=== PATIENT | female | born 1940 | race Caucasian/White ===

== ENCOUNTER 2022-01-03 21:23 | Inpatient (IN) | payer MEDICARE, OTHER ==
[~2022-01-03] VITALS: Ht 165.1 cm; Wt 82.6 kg
[~2022-01-03 21:23] MED LIST: ARIMIDEX1 MG PO; ASPIRIN EC325 MG PO; CALCITRATE200 MG PO; ELIQUIS5 MG PO; EVISTA60 MG PO; IMDUR ER TAB 3030 MG PO; LASIX 40 MG TAB40 MG PO; LOSARTAN POTASS50 MG PO; METOPROLOL TART25 MG PO; PLAVIX 75 MG TA75 MG PO; POTASSIUM CHLO20 MEQ PO; PROTONIX40 MG PO; SYMBICORT 16010.2 GM INH; SYNTHROID137 MCG PO; VENTOLIN HFA8 GM INH; VICTOZA 3-0.6 MG/0.1 SC
[2022-01-04 04:11] LABS: HEMOGLOBIN 12.6 gm/dl (12.3-15.3); RED BLOOD COUNT 4.27 M/UL (4.00-5.10); WHITE BLOOD COUNT 6.5 K/UL (4.5-11.0)
[2022-01-04 04:46] LABS: BUN/CREATININE RATIO 29 (0-10)
[2022-01-04] MEDS ORDERED: NITROGLYCERIN0.4 MG SL (09:53)
[2022-01-04] MEDS ORDERED: COLCHICINE0.6 M1 PO (09:54)
[2022-01-04] MEDS ORDERED: METFORMIN HCL1000 MG PO (09:55)
[2022-01-04] MEDS ORDERED: VITAMIN D21250 MCG PO (09:57)
[2022-01-05 06:57] LABS: HEMOGLOBIN 11.6 gm/dl (12.3-15.3); RED BLOOD COUNT 3.93 M/UL (4.00-5.10); WHITE BLOOD COUNT 5.8 K/UL (4.5-11.0)
[2022-01-06 03:54] LABS: RED BLOOD COUNT 3.69 M/UL (4.00-5.10)
[2022-01-06 03:56] LABS: WHITE BLOOD COUNT 8.9 K/UL (4.5-11.0)
[2022-01-06 07:39] LABS: BUN/CREATININE RATIO 28 (0-10)
[2022-01-07 03:38] LABS: HEMOGLOBIN 10.6 gm/dl (12.3-15.3); RED BLOOD COUNT 3.54 M/UL (4.00-5.10); WHITE BLOOD COUNT 9.6 K/UL (4.5-11.0)
--- NOTE | 2022-01-07 15:42 | NUR ---
1430 - PATIENT RETURNED TO ROOM FROM PACU. PATIENT [id number] WITH MILD DROWSINESS. VITALS STABLE. SCUDS AND COMPRESSION STOCKINGS APPLIED. INCENTIVE SPIROMETRY GIVEN. PATIENT ACHIEVED 750 AT THIS TIME. TELE APPLIED. DRESSING TO RIGHT THIGH/HIP C/D/I.
[2022-01-08 06:45] LABS: HEMOGLOBIN 9.1 gm/dl (12.3-15.3)
[2022-01-08 06:52] LABS: RED BLOOD COUNT 3.02 M/UL (4.00-5.10); WHITE BLOOD COUNT 13.3 K/UL (4.5-11.0)
[2022-01-08 07:06] LABS: BUN/CREATININE RATIO 26 (0-10)
[2022-01-09 04:51] LABS: HEMOGLOBIN 9.1 gm/dl (12.3-15.3); RED BLOOD COUNT 3.03 M/UL (4.00-5.10); WHITE BLOOD COUNT 14.4 K/UL (4.5-11.0)
[2022-01-10 06:19] LABS: HEMOGLOBIN 8.2 gm/dl (12.3-15.3); WHITE BLOOD COUNT 11.1 K/UL (4.5-11.0)
[2022-01-10 06:36] LABS: RED BLOOD COUNT 2.71 M/UL (4.00-5.10)
[2022-01-10 06:37] LABS: BUN/CREATININE RATIO 25 (0-10)
[2022-01-10] MEDS ORDERED: ROXICODONE TAB 55 MG PO (12:33)
[2022-01-10] MEDS ORDERED: LOPRESSOR 25 MG25 MG PO (12:33)
[2022-01-10] MEDS ORDERED: ACETAMINOPHEN325 MG PO (12:33)
[2022-01-10] MEDS ORDERED: ASPIRIN EC81 MG PO (12:33)
[2022-01-10] MEDS ORDERED: PROTONIX 40 MG40 M1 PO (12:33)
[2022-01-10] MEDS ORDERED: MIRALAX17 GM PO (12:46)
[2022-01-10] MEDS ORDERED: COLACE100 MG PO (12:46)
== END 2022-01-10 19:00 | disposition home or self-care (01) | DRG 478 ==
LOC: MED SURG 4 21:23
PROVIDERS: Internal Medicine; Nurse Practitioner Family; Orthopaedic Surgery; ADMIT Internal Medicine
PROC: 0QB60ZX Excision of Right Upper Femur, Open Approach, Diagnostic (ICD-10-PCS; principal; 2022-01-07 07:30)
PROC: 0QS606Z Reposition Right Upper Femur with Intramedullary Internal Fixation Device, Open Approach (ICD-10-PCS; 2022-01-07 07:30)
DX: M84.551A Pathological fracture in neoplastic disease, right femur, initial encounter for fracture (principal); C77.9 Secondary and unspecified malignant neoplasm of lymph node, unspecified; C79.51 Secondary malignant neoplasm of bone; E03.9 Hypothyroidism, unspecified; J44.9 Chronic obstructive pulmonary disease, unspecified; E11.9 Type 2 diabetes mellitus without complications; M81.0 Age-related osteoporosis without current pathological fracture; I48.91 Unspecified atrial fibrillation; K21.9 Gastro-esophageal reflux disease without esophagitis; I25.10 Atherosclerotic heart disease of native coronary artery without angina pectoris; I10 Essential (primary) hypertension; D64.9 Anemia, unspecified; G89.29 Other chronic pain; M54.9 Dorsalgia, unspecified; D72.829 Elevated white blood cell count, unspecified; Z86.73 Personal history of transient ischemic attack (TIA), and cerebral infarction without residual deficits; Z85.3 Personal history of malignant neoplasm of breast; Z87.440 Personal history of urinary (tract) infections; Z90.710 Acquired absence of both cervix and uterus; Z79.01 Long term (current) use of anticoagulants; Z95.1 Presence of aortocoronary bypass graft; Z90.49 Acquired absence of other specified parts of digestive tract; Z88.8 Allergy status to other drugs, medicaments and biological substances; Z87.891 Personal history of nicotine dependence; Z88.1 Allergy status to other antibiotic agents; Z88.0 Allergy status to penicillin; Z88.2 Allergy status to sulfonamides; Z95.5 Presence of coronary angioplasty implant and graft
CPT/HCPCS: 36415; 71045; 73522; 73552; 73700; 76000; 80048; 80053; 81001; 82962; 83036; 83735; 83880; 84132; 85025; 85027; 85610; 86300; 86850; 86900; 86901; 88341; 88342; 88360; 93005; 93925; 97110; 97110-GP-CQ; 97162; 97166; 97530; C1713; J0690; J1100; J1170; J1650; J2001; J2270; J2405; J2704; J3010; U0002